=== PATIENT | female | born 1985 | race Caucasian/White ===

== ENCOUNTER → 2020-03-11 | Outpatient (CLI) | payer MEDICAID ==
[~2020-03-11] MED LIST: ACHD5005 PO; AMIT100T2 PO; AMOX-358 PO; CLIN300C11 PO; DULO30CA49 PO; GBPN600T PO; PREN1TAB73 PO; ROPI4TAB5 PO; TRZ50T PO
--- NOTE | 2020-03-11 14:17 | Diagnostic Imaging Report ---
INDICATION: Mastodynia. Patient had recent surgical procedure. Sonographic interrogation of the left breast was performed. A marked breast parenchymal heterogeneity is identified particularly in the 6:00 location. There is an area of heterogeneous hypoechogenicity at this location with some internal vascularity consistent with probable inflammatory tissue. A well-formed fluid collection or abscess is not seen at this time. There is some minimal edema in the subcutaneous tissues. IMPRESSION: Breast tissue heterogeneity with some increased vascularity. This is likely owing to an inflammatory process such as cellulitis and or soft tissue phlegmon. No discrete abscess is identified at this time. Follow-up after course of therapy could be performed to confirm improvement/clearing. Dictated by: Dictated on workstation # [id number]
== END ==
LOC: RAD 13:00
PROVIDERS: ATTEND Family Medicine
DX: N64.89 Other specified disorders of breast (principal); Z98.890 Other specified postprocedural states
CPT/HCPCS: 76642

== ENCOUNTER 2020-03-12 23:24 | Inpatient (IN) | payer MEDICAID ==
[~2020-03-12] VITALS: Ht 152.4 cm; Wt 63.0 kg
[2020-03-13] VITALS (7 sets, daily range): BP systolic 97–108; BP diastolic 61–69
[2020-03-13] MEDS ORDERED: fentaNYL INJECTION 100 MCG/2 ML AMP IVP ONE
[2020-03-13] MEDS ORDERED: VANCOMYCIN INJECTION 750 MG in NS (IVPB) 100 ML IV ONE ×2
[2020-03-13] MEDS ORDERED: PIPERACILLIN SODIUM/TAZOBACTAM 4.5 GM in NS (IVPB) 100 ML IV ONE ×2
--- NOTE | 2020-03-13 00:08 | ED General ---
General Chief Complaint: Post OP Complications/Pain Stated Complaint: POST OP PAIN & SWELLING,FEVER 101.8 Source of Information: Patient History of Present Illness Date Seen by Provider: Mar 13, 2020 Time Seen by Provider: 23:37 Initial Comments PT ARRIVES VIA POV FROM HOME WAS ADVISED TO COME HERE BY DR. PENA AND DR. ODOM, DR. 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 PENA ON 02/23/20--ABDOMINAL LIPOSUCTION WITH FAT TRANSFER TO BOTH BREASTS PT HAS HAD INCREASED PAIN, INCREASED REDNESS AND SIGNIFICANT SWELLING OF LEFT BREAST HAS HAD FEVER UP TO 103 THE LAST FEW DAYS HAS SEEN DR. PENA AND HAD BEEN PRESCRIBED KEFLEX. SAW HER AGAIN IN THE OFFICE 2 NIGHTS AGO, ALONG WITH DR. ODOM--WAS GIVEN A SHOT OF ROCEPHIN AND STARTED ON CLINDAMYCIN. PT ALSO STATES HER PAIN MEDICATION WAS SWITCHED. PT DOES NOT KNOW NAMES OF ANY OF HER MEDICATIONS OR DOSES--NOT EVEN HER REGULAR MEDICATIONS ( STATES SHE TAKES 12 OF THEM) , EXCEPT WHAT SHE HAS TAKEN A PHOTO OF ON HER PHONE. PER MED RECONCILIATION, PT WAS PRESCRIBED OXYCODONE ON 01/26/[address] AARON [facility] IN [place]; PRESCRIBED TRAMADOL, KEFLEX, XANAX AND PHENERGAN BY DR. PENA; PRESCRIBED KEFLEX 03/07/20 AND CLINDAMYCIN 03/[address] PENA; PRESCRIBED HYDROCODONE 03/11/[address] PENA ALSO PRESCRIBED PT STATES HER LAST DOSE OF PAIN MEDICATION WAS A FEW HOURS HAS NOT TAKEN ANYTHING ELSE FOR PAIN OR FEVER NO COUGH OR RESPIRATORY SYMPTOMS NO SHORTNESS OF BREATH NO SORE THROAT OR LOSS OF TASTE OR SMELL NO GI SYMPTOMS NO HEADACHE NO BODY ACHES NO KNOWN EXPOSURE TO COVID-19 PT STATES SHE HAS HAD THIS EXACT SAME PROCEDURE DONE, ALONG WITH A TUMMY TUCK, IN THE PAST BY DR. PENA AND DID NOT HAVE ANY PROBLEMS PT DOES STATE WITH HER LAST FOOT SURGERY SHE DID HAVE AN INFECTION POST OP, AND WAS HOSPITALIZED FOR IV ANTIBIOTICS ADDITIONALLY, PT STATES SHE IS SCHEDULED TO HAVE HER RIGHT OVARY REMOVED AT [facility] ON 03/19/20 FOR A GROWTH ON HER OVARY. PT IS NOT DIABETIC PCP: DR. KEE, [facility] IN [place] Allergies and Home Medications Allergies Coded Allergies: Sulfa (Sulfonamide Antibiotics) (Verified Allergy, Unknown, 03/12/20) Patient Home Medication List Home Medication List Reviewed: Yes Review of Systems Review of Systems Constitutional: see HPI, fever EENTM: no symptoms reported; No nose congestion, No throat pain Respiratory: no symptoms reported; No cough, No short of breath Cardiovascular: no symptoms reported Gastrointestinal: no symptoms reported; No abdominal pain, No loss of appetite, No nausea, No vomiting Genitourinary: no symptoms reported : No LMP: Feb 28, 2020 (NO CONTROLPERIODS ALWAYS IRREGULAR) Musculoskeletal: no symptoms reported Skin: see HPI Psychiatric/Neurological: No Symptoms Reported Hematologic/Lymphatic: No Symptoms Reported Immunological/Allergic: no symptoms reported Past Bhbhyff-Ieuhjz-Wkwlbw Hx Past Med/Social Hx: Reviewed and Corrections made Patient Social History Recent Foreign Travel: No Contact w/Someone Who Travel: No Past Medical History Surgeries: Yes Abdominal, Breast, Ear Surgery, Gallbladder, Orthopedic Respiratory: No Cardiac: Yes (TACHYCARDIA) Irregular Heartbeat, Palpitations Neurological: Yes Headaches /Migraines Reproductive Disorders: Yes (IRREGULAR PERIODS) Female Reproductive Disorders: Menstrual Problems Genitourinary: No Gastrointestinal: No Musculoskeletal: Yes (RESTLESS LEG SYNDROME; BILATERAL FOOT SURGERY/ARCH RECONSTRUCTION) Endocrine: No HEENT: Yes (BMT'S) Chronic Ear Infection Cancer: No Psychosocial: Yes Anxiety, Depression Family Medical History SOCIAL HISTORY: -ETOH--DENIES -DRUGS--DENIES -SMOKING--DENIES PAST SURGICAL HISTORY: -GASTRIC BYPASS -BILATERAL BREAST REDUCTION -ABDOMINAL LIPOSUCTION WITH FAT TRANSFER TO BILATERAL BREASTS --TWICE; POST OP WOUND INFECTION LEFT BREAST 02/2020 -TUMMY TUCK -CHOLECYSTECTOMY -BILATERAL FOOT SURGERY--ARCH RECONSTRUCTION FOR FLAT FEET--WITH POST OP WOUND INFECTION -BILATERAL MYRINGOTOMY TUBES Physical Exam Vital Signs Vital Signs - First Documented 03/12/20 23:34 Temp 36.7 Pulse 110 Resp 20 B/P (MAP) 105/83 (90) Pulse Ox 98 O2 Delivery Room Air Capillary Refill : Height, Weight, BMI Height: '" Weight: lbs. oz. 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 AREAS ARE VERY WARM TO TOUCH LEFT BREAST IS MARKEDLY TENDER, AND OVERLYING SKIN IS VERY TIGHT AND VERY SHINY NO DRAINAGE DORSAL ASPECT OF BOTH UPPER ARMS AND BOTH FOREARMS WITH ERYTHEMA AND WARMTH Focused Exam Lactate Level 03/12/20 23:35: Lactic Acid Level 1.10 Lactic Acid Level Laboratory Tests Test 03/12/20 23:35 Lactic Acid Level 1.10 MMOL/L (0.50-2.00) Progress/Results/Core Measures Suspected Sepsis SIRS Temperature: Pulse: Respiratory Rate: Laboratory Tests 03/12/20 23:35: White Blood Count 12.1H Blood Pressure / Mean: 03/12/20 23:35: Lactic Acid Level 1.10 Laboratory Tests 03/12/20 23:35: Creatinine 0.79, INR Comment 1.1, Platelet Count 363, Total Bilirubin 0.3 Results/Orders Lab Results Laboratory Tests Test 03/12/20 23:35 03/12/20 23:50 03/13/20 00:15 Range/Units White Blood Count 12.1 H 4.3-11.0 10^3/uL Red Blood Count 3.41 L 3.80-5.11 10^6/uL Hemoglobin 8.6 L 11.5-16.0 g/dL Hematocrit 28 L 35-52 % Mean Corpuscular Volume 81 80-99 fL Mean Corpuscular Hemoglobin 25 25-34 pg Mean Corpuscular Hemoglobin Concent 31 L 32-36 g/dL Red Cell Distribution Width 15.2 H 10.0-14.5 % Platelet Count 363 130-400 10^3/uL Mean Platelet Volume 12.7 H 9.0-12.2 fL Immature Granulocyte % (Auto) 0 % Neutrophils (%) (Auto) 82 H 42-75 % Lymphocytes (%) (Auto) 9 L 12-44 % Monocytes (%) (Auto) 8 0-12 % Eosinophils (%) (Auto) 0 0-10 % Basophils (%) (Auto) 0 0-10 % Neutrophils # (Auto) 9.9 H 1.8-7.8 10^3/uL Lymphocytes # (Auto) 1.1 1.0-4.0 10^3/uL Monocytes # (Auto) 1.0 0.0-1.0 10^3/uL Eosinophils # (Auto) 0.0 0.0-0.3 10^3/uL Basophils # (Auto) 0.0 0.0-0.1 10^3/uL Immature Granulocyte # (Auto) 0.1 0.0-0.1 10^3/uL Erythrocyte Sedimentation Rate 67 H 0-20 MM/HR Prothrombin Time 15.0 H 12.2-14.7 SEC INR Comment 1.1 0.8-1.4 Activated Partial Thromboplast Time 35 24-35 SEC Sodium Level 136 135-145 MMOL/L Potassium Level 3.4 L 3.6-5.0 MMOL/L Chloride Level 99 98-107 MMOL/L Carbon Dioxide Level 25 21-32 MMOL/L Anion Gap 12 5-14 MMOL/L Blood Urea Nitrogen 11 7-18 MG/DL Creatinine 0.79 0.60-1.30 MG/DL Estimat Glomerular Filtration Rate > 60 BUN/Creatinine Ratio 14 Glucose Level 120 H 70-105 MG/DL Lactic Acid Level 1.10 0.50-2.00 MMOL/L Calcium Level 8.5 8.5-10.1 MG/DL Corrected Calcium 8.8 8.5-10.1 MG/DL Magnesium Level 1.9 1.6-2.4 MG/DL Total Bilirubin 0.3 0.1-1.0 MG/DL Aspartate Amino Transf (AST/SGOT) 16 5-34 U/L Alanine Aminotransferase (ALT/SGPT) 16 0-55 U/L Alkaline Phosphatase 87 40-136 U/L C-Reactive Protein High Sensitivity 21.01 H 0.00-0.50 MG/DL Total Protein 7.0 6.4-8.2 GM/DL Albumin 3.6 3.2-4.5 GM/DL Procalcitonin 0.12 H <0.10 NG/ML Serum Test, Qualitative NEGATIVE NEGATIVE Coronavirus 2018 (ALEJANDRO) Negative Negative Urine Color DARK YELLOW Urine Clarity SL CLOUDY Urine pH 5.5 5-9 Urine Specific [place] 1.025 H 1.016-1.022 Urine Protein TRACE H NEGATIVE Urine Glucose (UA) NEGATIVE NEGATIVE Urine Ketones TRACE H NEGATIVE Urine Nitrite NEGATIVE NEGATIVE Urine Bilirubin NEGATIVE NEGATIVE Urine Urobilinogen 1.0 < = 1.0 MG/DL Urine Leukocyte Esterase NEGATIVE NEGATIVE Urine RBC (Auto) TRACE-I NEGATIVE Urine RBC RARE /HPF Urine WBC NONE /HPF Urine Squamous Epithelial Cells 10-25 H /HPF Urine Crystals NONE /LPF Urine Bacteria TRACE /HPF Urine Casts NONE /LPF Urine Mucus LARGE H /LPF Urine Culture Indicated NO Urine Opiates Screen POSITIVE H NEGATIVE Urine Oxycodone Screen NEGATIVE NEGATIVE Urine Methadone Screen NEGATIVE NEGATIVE Urine Propoxyphene Screen NEGATIVE NEGATIVE Urine Barbiturates Screen NEGATIVE NEGATIVE Ur Tricyclic Antidepressants Screen POSITIVE H NEGATIVE Urine Phencyclidine Screen NEGATIVE NEGATIVE Urine Amphetamines Screen NEGATIVE NEGATIVE Urine Methamphetamines Screen NEGATIVE NEGATIVE Urine Benzodiazepines Screen NEGATIVE NEGATIVE Urine Cocaine Screen NEGATIVE NEGATIVE Urine Cannabinoids Screen NEGATIVE NEGATIVE My Orders Orders - DOROTHY CRISTINA DO Ed Iv/Invasive Line Start (03/12/20 23:37) Urine Bedside (03/12/20 23:37) Monitor-Rhythm Ecg Trace Only (03/12/20 23:37) Cbc With Automated Diff (03/12/20 23:37) Comprehensive Metabolic Panel (03/12/20 23:37) Hs C Reactive Protein (03/12/20 23:37) Hcg,Qualitative Serum (03/12/20 23:37) Lactic Acid Analyzer (03/12/20 23:37) Magnesium (03/12/20 23:37) Procalcitonin (Pct) (03/12/20 23:37) Protime With Inr (03/12/20 23:37) Partial Thromboplastin Time (03/12/20 23:37) Ua Culture If Indicated (03/12/20 23:37) Blood Culture (03/12/20 23:37) Erythrocyte Sedimentation Rate (03/12/20 23:37) Ed Iv/Invasive Line Start (03/12/20 23:37) Coronavirus Sars-Cov-2 So 2018 (03/12/20 23:39) Covid 19 Inhouse Test (03/12/20 23:39) Chest Pa/Lat (2 View) (03/13/20 00:01) Fentanyl Injection (Sublimaze Injection (03/13/20 00:00) Piperacillin Sodium/Tazobactam (Zosyn Vi (03/13/20 00:00) Vancomycin Injection (Vancomycin Injecti (03/13/20 00:00) Vancomycin Injection (Vancomycin Injecti (03/13/20 01:00) Drug Screen Stat (Urine) (03/13/20 01:11) Ed Iv/Invasive Line Start (03/13/20 01:18) Lactated Ringers (Lr 1000 Ml Iv Solution (03/13/20 01:18) Ns Iv 1000 Ml (Sodium Chloride 0.9%) (03/13/20 01:18) Ed Iv/Invasive Line Start (03/13/20 02:27) Lactated Ringers (Lr 1000 Ml Iv Solution (03/13/20 02:27) Medications Given in ED Current Medications Medications Dose Ordered Sig/Hannah Route Start Time Stop Time Status Last Admin Dose Admin Fentanyl Citrate 50 mcg ONCE ONCE IVP 03/13/20 00:00 03/13/20 00:01 DC 03/13/20 00:34 50 MCG Piperacillin Sod/ Tazobactam Sod 4.5 gm/Sodium Chloride 100 ml @ 200 mls/hr ONCE ONCE IV 03/13/20 00:00 03/13/20 00:29 DC 03/13/20 00:34 200 MLS/HR Vancomycin HCl 500 mg/Sodium Chloride 100 ml @ 100 mls/hr ONCE ONCE IV 03/13/20 01:00 03/13/20 01:59 DC 03/13/20 02:16 100 MLS/HR Vancomycin HCl 750 mg/Sodium Chloride 100 ml @ 100 mls/hr ONCE ONCE IV 03/13/20 00:00 03/13/20 00:59 DC 03/13/20 01:10 100 MLS/HR Vital Signs/I&O 03/12/20 03/12/20 03/13/20 23:34 23:50 02:26 Temp 36.7 36.7 37.0 Pulse 110 110 101 Resp 20 20 13 B/P (MAP) 105/83 (90) 105/83 97/73 (90) Pulse Ox 98 98 100 O2 Delivery Room Air Capillary Refill : Progress Note : Progress Note GIVEN IV FLUIDS GIVEN FENTANYL FOR PAIN WITH MODERATE IMPROVEMENT GIVEN ZOSYN AND VANCOMYCIN ERYTHEMA TO ARMS IS GONE AT TIME OF ADMIT NO FEVER HEART RATE DOWN, BP UP WITH FLUIDS Diagnostic Imaging Comments CXR--ON ACUTE PROCESS, PENDING RADIOLOGIST REVIEW Reviewed: Reviewed by Me Departure Communication (Admissions) 0100--SPOKE WITH DR. ODOM, ACCEPTS PT FOR ADMIT. NO ADDITIONAL RECOMMENDATIONS AT THIS TIME Impression Primary Impression: Post op infection Additional Impressions: Cellulitis of left breast Sepsis Disposition: ADMITTED INPATIENT Condition: Stable Admissions Decision to Admit Reason: Admit from ER (General) Decision to Admit/Date: Mar 13, 2020 Time/Decision to Admit Time: 01:00 Departure-Patient Inst. Referrals: DIANA LY DO (PCP) Primary Care Physician DOROTHY CRISTINA DO Mar 13, 2020 00:08
[2020-03-13 00:33] LABS: BILIRUBIN,URINE NEGATIVE (NEGATIVE); CLARITY,URINE SL CLOUDY; COLOR,URINE DARK YELLOW; GLUCOSE, URINE (UA) NEGATIVE (NEGATIVE); KETONES,URINE TRACE (NEGATIVE); LEUKOCYTE ESTERASE ,URINE NEGATIVE (NEGATIVE); NITRITE,URINE NEGATIVE (NEGATIVE); PH,URINE 5.5 (5-9); PROTEIN,URINE TRACE (NEGATIVE)
[2020-03-13 00:33] LABS: BASOPHILS % (AUTO) 0 % (0-10); EOSINOPHILS % (AUTO) 0 % (0-10); HEMATOCRIT 28 % (35-52); HEMOGLOBIN 8.6 g/dL (11.5-16.0); LYMPHOCYTES # (AUTO) 1.1 10^3/uL (1.0-4.0); LYMPHOCYTES % (AUTO) 9 % (12-44); MEAN CORPUSCULAR HEMOGLOBIN 25 pg (25-34); MEAN CORPUSCULAR HGB CONC 31 g/dL (32-36); MEAN CORPUSCULAR VOLUME 81 fL (80-99); MEAN PLATELET VOLUME 12.7 fL (9.0-12.2); MONOCYTES % (AUTO) 8 % (0-12); NEUTROPHILS # (AUTO) 9.9 10^3/uL (1.8-7.8); NEUTROPHILS % (AUTO) 82 % (42-75); PLATELET COUNT 363 10^3/uL (130-400); WHITE BLOOD COUNT 12.1 10^3/uL (4.3-11.0)
[2020-03-13 00:42] LABS: BACTERIA,URINE TRACE /HPF; RBC,URINE RARE /HPF
[2020-03-13 00:43] LABS: ALBUMIN 3.6 GM/DL (3.2-4.5); CHLORIDE 99 MMOL/L (98-107); POTASSIUM 3.4 MMOL/L (3.6-5.0); SODIUM 136 MMOL/L (135-145)
[2020-03-13 00:44] LABS: CALCIUM 8.5 MG/DL (8.5-10.1); INR 1.1 (0.8-1.4)
[2020-03-13 00:46] LABS: GLUCOSE 120 MG/DL (70-105)
[2020-03-13 00:47] LABS: BILIRUBIN,TOTAL 0.3 MG/DL (0.1-1.0); CARBON DIOXIDE 25 MMOL/L (21-32)
[2020-03-13 00:49] LABS: ALKALINE PHOSPHATASE 87 U/L (40-136); CREATININE SERUM 0.79 MG/DL (0.60-1.30); GFR ESTIMATED > 60
[2020-03-13 00:50] LABS: BUN/CREATININE RATIO 14
[2020-03-13 00:52] LABS: ALANINE AMINOTRANSFERASE 16 U/L (0-55); MAGNESIUM 1.9 MG/DL (1.6-2.4)
[2020-03-13 00:55] LABS: ERYTHROCYTE SEDIMENTATION RATE 67 MM/HR (0-20)
[2020-03-13] MEDS ORDERED: VANCOMYCIN INJECTION 500 MG in NS (IVPB) 100 ML IV ONE (01:00)
[2020-03-13] MEDS ORDERED: LACTATED RINGERS 1,000 ML IV ONE ×3 (01:18→02:27)
[2020-03-13] MEDS ORDERED: NS IV 1000 ML 1,000 ML IV SCH (01:18)
[2020-03-13 01:33] LABS: AMPHETAMINE SCREEN, URINE NEGATIVE (NEGATIVE); BARBITURATE SCREEN URINE NEGATIVE (NEGATIVE); BENZODIAZEPINES SCREEN URINE NEGATIVE (NEGATIVE); CANNABINOID SCREEN, URINE NEGATIVE (NEGATIVE); COCAINE SCREEN URINE NEGATIVE (NEGATIVE); METHADONE STAT NEGATIVE (NEGATIVE); METHAMPHETAMINE SCREEN URINE S NEGATIVE (NEGATIVE); OPIATE SCREEN URINE POSITIVE (NEGATIVE); OXYCODONE STAT NEGATIVE (NEGATIVE); PROPOXYPHENE STAT NEGATIVE (NEGATIVE); TRICYCLIC ANTIDEPRESSANTS SCRE POSITIVE (NEGATIVE)
--- NOTE | 2020-03-13 01:50 | NUR ---
REPORT GIVEN TO CHRIS SANCHEZ. RELAYED MESSAGE FROM DR CRISTINA AND LEI PATIENT IS BEING TESTED FOR COVID 19 VIA SENDOUT SAMPLE. IN HOUSE SAMPLE WAS NEGITIVE. ADMINISTRATION DEAN YAA MARCOS.
--- NOTE | 2020-03-13 02:50 | NUR ---
MARIPOSA ELIZONDO admitted to room 423-1, with an admitting diagnosis of Cellulitis, on 03/13/20 from ED via cart, accompanied by staff.MARIPOSA ELIZONDO introduced to surroundings, call light, bed controls, phone, TV, temperature control, lights, meal times, smoking policy, visitor policy, side rail policy, bathrooms and showers. Patient Rights given to patient in the handbook. MARIPOSA ELIZONDO verbalizes understanding that [facility] is not responsible for the loss or damage to any personal effects or valuables that are kept in the patients posession during their hospitalization. MARIPOSA ELIZONDO verbalizes understanding of Interdisciplinary Patient Education. Patient and/or family were informed about the Rapid Response Team and its purpose.
--- NOTE | 2020-03-13 02:51 | NUR ---
Per Report from [facility] ED nurse, Pt was tested for Covid-[address] Gilbert order. However per Dr. Gilbert, Pt is not to be PUI. 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
[2020-03-13] MEDS ORDERED: ONDANSETRON 4 MG/2 ML (SDV) Z0FRAN IVP PRN (03:45)
[2020-03-13] MEDS: 1/2 NS IV SOLUTION 1,000 ML IV SCH ×3 (04:15→15:23)
[2020-03-13] MEDS ORDERED: PIPERACILLIN/TAZO 4.5 GM VIAL (ZOSYN) IV ONE (05:56)
[2020-03-13] MEDS ORDERED: NS (IVPB) 100 ML ONE (05:57)
[2020-03-13] MEDS ORDERED: PIPERACILLIN/TAZO 4.5 GM/NS 100 ML IV SCH ×2 (06:00)
[2020-03-13 06:10] LABS: BASOPHILS % (AUTO) 0 % (0-10); EOSINOPHILS # (AUTO) 0.1 10^3/uL (0.0-0.3); EOSINOPHILS % (AUTO) 1 % (0-10); HEMATOCRIT 25 % (35-52); HEMOGLOBIN 7.5 g/dL (11.5-16.0); LYMPHOCYTES # (AUTO) 1.1 10^3/uL (1.0-4.0); LYMPHOCYTES % (AUTO) 11 % (12-44); MEAN CORPUSCULAR HEMOGLOBIN 25 pg (25-34); MEAN CORPUSCULAR HGB CONC 31 g/dL (32-36); MEAN CORPUSCULAR VOLUME 82 fL (80-99); MEAN PLATELET VOLUME 12.6 fL (9.0-12.2); MONOCYTES # (AUTO) 1.2 10^3/uL (0.0-1.0); MONOCYTES % (AUTO) 11 % (0-12); NEUTROPHILS # (AUTO) 8.1 10^3/uL (1.8-7.8); NEUTROPHILS % (AUTO) 77 % (42-75); PLATELET COUNT 270 10^3/uL (130-400); WHITE BLOOD COUNT 10.5 10^3/uL (4.3-11.0)
[2020-03-13] MEDS: PIPERACILLIN/TAZOBACTAM (BULK) 4.5 GM in NS (IVPB) 100 ML IV SCH ×3 (06:13→21:45)
[2020-03-13 06:37] LABS: ALANINE AMINOTRANSFERASE 14 U/L (0-55); ALBUMIN 2.9 GM/DL (3.2-4.5); ALKALINE PHOSPHATASE 67 U/L (40-136); BILIRUBIN,TOTAL 0.3 MG/DL (0.1-1.0); BUN/CREATININE RATIO 12; CALCIUM 7.9 MG/DL (8.5-10.1); CARBON DIOXIDE 26 MMOL/L (21-32); CHLORIDE 103 MMOL/L (98-107); CREATININE SERUM 0.65 MG/DL (0.60-1.30); GFR ESTIMATED > 60; GLUCOSE 86 MG/DL (70-105); POTASSIUM 3.3 MMOL/L (3.6-5.0); SODIUM 136 MMOL/L (135-145); TOTAL PROTEIN 5.4 GM/DL (6.4-8.2)
[2020-03-13] MEDS: fentaNYL INJECTION 100 MCG/2 ML AMP IVP PRN ×3 (06:37→20:48)
--- NOTE | 2020-03-13 07:58 | Diagnostic Imaging Report ---
INDICATION: Fever. Pain and redness in the left breast. EXAMINATION: PA and lateral views of the chest. FINDINGS: The heart size and vascularity are normal. Lungs are clear. There is no effusion. There is no acute bony abnormality. IMPRESSION: No acute abnormality is seen. Dictated by: Dictated on workstation # [id number]
[2020-03-13] MEDS ORDERED: TRZ50T PO (10:03)
[2020-03-13] MEDS ORDERED: ROPI4TAB5 PO (10:03)
[2020-03-13] MEDS ORDERED: DULO30CA49 PO (10:03)
[2020-03-13] MEDS ORDERED: AMIT100T2 PO (10:03)
[2020-03-13] MEDS ORDERED: PREN1TAB73 PO (10:03)
[2020-03-13] MEDS ORDERED: CLIN300C11 PO (10:03)
[2020-03-13] MEDS ORDERED: GBPN600T PO (10:03)
[2020-03-13] MEDS ORDERED: ACHD5005 PO (10:03)
--- NOTE | 2020-03-13 10:06 | NUR ---
SPOKE WITH THE PT, WENT THRU THE EXT MED HISTORY AND CALLED [facility] TO COMPLETE THE MED REC EMGALITY 120MG/ML MONTHLY INJECTIONS ARE ON THE EXT MED HISTORY WITH FILL DATES OF 03-11-2020, 02-12-2020, 01-03-2020 HOWEVER PT SHOOK HER HEAD WHEN I ASKED ABOUT THESE- WHEN I INQUIRED IF SHE HAD EVER USED THE PT SAID NO. KEFLEX 500MG WAS PRESCRIBED AND FILLED ON 01-05-2020 #20 HOWEVER THAT THERAPY WAS DISCONTINUED AND SHE WAS TAKING CLINDAMYCIN PRIOR TO BEING ADMITTED THE FOLLOWING MEDICATIONS THE PT SAYS SHE TAKES HOWEVER THEY ARE ALL PAST DUE FOR REFILLS AND WHEN I INQUIRED ABOUT THIS THE PT SAYS SHE HAS A "STOCK" BUILT UP: AMITRIPTYLINE 100MG LAST FILLED 01-15-2020 #30/30DS TRAZODONE 50MG LAST FILLED 01-16-2020 #30/30DS GABAPENTIN 600MG LAST FILLED 11-14-2019 #90/30DS- PT DID SAY THERE ARE SOME DAYS SHE JUST TAKES THIS AT HS OTC MEDS: VITAMIN
--- NOTE | 2020-03-13 13:21 | History & Physical-Surgical ---
JOLYNN HARGROVE MED STUDENT 03/13/20 1321: History of Present Illness History of Present Illness Reason for visit/HPI left breast swelling, redness s/p abdominal liposuction with adipose tissue placed in both breasts 02/22 hx gastric bypass Date of Admission Mar 13, 2020 at 01:00 Date Seen by a Provider: Mar 13, 2020 Time Seen by a Provider: 07:10 I consulted on this patient on 03/12/20 approximately 2200 Attending Physician Valentino Odom DO Admitting Physician Katya Magallanes DO Consult Consult requested by Dr. Zavala Dayan is a 34 yo F who underwent abdominal liposuction with transfer of adipose tissue to her breasts on 02/22. She states she had done this procedure once prior. The patient reports she felt sore following the surgery but went several weeks without problems, until she began having intermittent fever and chills over the past 5 days with increasing left chest pain and left breast swelling. Per the patient and ER note the patient tried Keflex without improvement, was given IM rocephin and switched to clindamycin 3 nights ago. The patient states her pain is 4/10 this morning and does not radiate. She denies abdominal pain, nausea, vomiting, current fever, and SOB. Denies pain elsewhere on the body. Allergies and Home Medications Allergies Coded Allergies: Sulfa (Sulfonamide Antibiotics) (Verified Allergy, Unknown, 03/12/20) codeine (Verified Allergy, Unknown, 03/13/20) latex (Verified Allergy, Unknown, 03/13/20) Uncoded Allergies: tape (Allergy, Unknown, 03/13/20) Home Medications Amitriptyline HCl 100 Mg Tablet, 100 MG PO HS, (Reported) FILLED 01-15-2020 #30 Clindamycin HCl 300 Mg Capsule, 300 MG PO QID, (Reported) FILLED 03-10-2020 #40/10 DAY SUPPLY Duloxetine HCl 30 Mg Capsule.dr, 30 MG PO DAILY, (Reported) Gabapentin 600 Mg Tablet, 600 MG PO TID PRN for PAIN-BREAKTHROUGH, (Reported) LAST FILLED 11-14-2019 #90/30 DAY SUPPLY Hydrocodone/Acetaminophen 1 Each Tablet, 1-2 EA PO Q6H PRN for PAIN-MODERATE (5- 7), (Reported) Pnv95/Ferrous Fumarate/FA 1 Each Tablet, 1 EACH PO DAILY, (Reported) Ropinirole HCl 4 Mg Tablet, 4 MG PO HS, (Reported) FILLED 01-26-2020 #30 Trazodone HCl 50 Mg Tablet, 50 MG PO HS, (Reported) LAST FILLED 01-16-2020 #30 Past Zgvzfce-Etqlpw-Aaaogu Hx Patient Social History Alcohol Use: Denies Use Recreational Drug Use: No Smoking Status: Unknown if Ever Smoked Recent Foreign Travel: No Contact w/Someone Who Travel: No Recent Infectious Disease Expo: No Immunizations Up To Date Date of Influenza Vaccine: Feb 21, 2020 Surgeries History of Surgeries: Yes Surgeries: Abdominal, Breast, Ear Surgery, Gallbladder, Orthopedic Respiratory History of Respiratory Disorde: No Cardiovascular History of Cardiac Disorders: Yes (TACHYCARDIA) Cardiac Disorders: Irregular Heartbeat, Palpitations Neurological History of Neurological Disord: Yes Neurological Disorders: Headaches /Migraines Reproductive System : No Hx Reproductive Disorders: Yes (IRREGULAR PERIODS) Female Reproductive Disorders: Menstrual Problems Genitourinary History of Genitourinary Disor: No Gastrointestinal History of Gastrointestinal Di: No Musculoskeletal History of Musculoskeletal Dis: Yes (RESTLESS LEG SYNDROME; BILATERAL FOOT SURGERY/ARCH RECONSTRUCTION) Endocrine History of Endocrine Disorders: No 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 Cancer History of Cancer: No Psychosocial History of Psychiatric Problem: Yes Behavioral Health Disorders: Anxiety, Depression Review of Systems Constitutional: No chills, No diaphoresis, No fever EENTM: No ear pain, No double vision Respiratory: No cough, No dyspnea on exertion, No short of breath Cardiovascular: No edema, No palpitations Gastrointestinal: No abdominal pain, No constipation Genitourinary: No dysuria, No hematuria Musculoskeletal: No back pain, No joint pain Skin: No change in color, No change in hair/nails Psychiatric/Neurological: Denies Anxiety, Denies Depressed All Other Systems Reviewed Negative Unless Noted: Yes Physical Exam Vital Signs Vital Signs - First Documented 03/12/20 23:34 Temp 36.7 Pulse 110 Resp 20 B/P (MAP) 105/83 (90) Pulse Ox 98 O2 Delivery Room Air Capillary Refill : Less Than 3 Seconds Height, Weight, BMI Height: '" Weight: lbs. oz. kg; 27.12 BMI Method: General Appearance: No Apparent Distress, WD/WN HEENT: PERRL/EOMI, Normal ENT Inspection Neck: Non Tender, Supple Respiratory: Lungs Clear, Normal Breath Sounds, No Accessory Muscle Use, No Respiratory Distress Cardiovascular: Regular Rate, Rhythm, No Edema Gastrointestinal: Non Tender, Soft Extremity: Normal Capillary Refill, Non Tender Neurologic/Psychiatric: Alert, Oriented x3 Skin: Warm/Dry, Other (left breast swelling with erythema to the lower half of the breast. Erythema well within the margins drawn in the ER last night. ) Data Review Labs Laboratory Tests 03/12/20 23:35: White Blood Count 12.1H, Red Blood Count 3.41L, Hemoglobin 8.6L, Hematocrit 28L, Mean Corpuscular Volume 81, Mean Corpuscular Hemoglobin 25, Mean Corpuscular Hemoglobin Concent 31L, Red Cell Distribution Width 15.2H, Platelet Count 363, Mean Platelet Volume 12.7H, Immature Granulocyte % (Auto) 0, Neutrophils (%) (Auto) 82H, Lymphocytes (%) (Auto) 9L, Monocytes (%) (Auto) 8, Eosinophils (%) (Auto) 0, Basophils (%) (Auto) 0, Neutrophils # (Auto) 9.9H, Lymphocytes # (Auto) 1.1, Monocytes # (Auto) 1.0, Eosinophils # (Auto) 0.0, Basophils # (Auto) 0.0, Immature Granulocyte # (Auto) 0.1, Erythrocyte Sedimentation Rate 67H, Prothrombin Time 15.0H, INR Comment 1.1, Activated Partial Thromboplast Time 35, Sodium Level 136, Potassium Level 3.4L, Chloride Level 99, Carbon Dioxide Level 25, Anion Gap 12, Blood Urea Nitrogen 11, Creatinine 0.79, Estimat Glomerular Filtration Rate > 60, BUN/Creatinine Ratio 14, Glucose Level 120H, Lactic Acid Level 1.10, Calcium Level 8.5, Corrected Calcium 8.8, Magnesium Level 1.9, Total Bilirubin 0.3, Aspartate Amino Transf (AST/SGOT) 16, Alanine Aminotransferase (ALT/SGPT) 16, Alkaline Phosphatase 87, C-Reactive Protein High Sensitivity 21.01H, Total Protein 7.0, Albumin 3.6, Procalcitonin 0.12H, Serum Didi t, Qualitative NEGATIVE 03/12/20 23:50: Coronavirus 2019 (ALEJANDRO) Negative 03/13/20 00:15: Urine Color DARK YELLOW, Urine Clarity SL CLOUDY, Urine pH 5.5, Urine Specific [place] 1.025H, Urine Protein TRACEH, Urine Glucose (UA) NEGATIVE, Urine Ketones TRACEH, Urine Nitrite NEGATIVE, Urine Bilirubin NEGATIVE, Urine Urobilinogen 1.0, Urine Leukocyte Esterase NEGATIVE, Urine RBC (Auto) TRACE-I, Urine RBC RARE, Urine WBC NONE, Urine Squamous Epithelial Cells 10-25H, Urine Crystals NONE, Urine Bacteria TRACE, Urine Casts NONE, Urine Mucus LARGEH, Urine Culture Indicated NO, Urine Opiates Screen POSITIVEH, Urine Oxycodone Screen NEGATIVE, Urine Methadone Screen NEGATIVE, Urine Propoxyphene Screen NEGATIVE, Urine Barbiturates Screen NEGATIVE, Ur Tricyclic Antidepressants Screen POSITIVEH, Urine Phencyclidine Screen NEGATIVE, Urine Amphetamines Screen NEGATIVE, Urine Methamphetamines Screen NEGATIVE, Urine Benzodiazepines Screen NEGATIVE, Urine Cocaine Screen NEGATIVE, Urine Cannabinoids Screen NEGATIVE 03/13/20 05:47: White Blood Count 10.5, Red Blood Count 3.01L, Hemoglobin 7.5L, Hematocrit 25L, Mean Corpuscular Volume 82, Mean Corpuscular Hemoglobin 25, Mean Corpuscular Hemoglobin Concent 31L, Red Cell Distribution Width 15.3H, Platelet Count 270, Mean Platelet Volume 12.6H, Immature Granulocyte % (Auto) 0, Neutrophils (%) (Auto) 77H, Lymphocytes (%) (Auto) 11L, Monocytes (%) (Auto) 11, Eosinophils (%) (Auto) 1, Basophils (%) (Auto) 0, Neutrophils # (Auto) 8.1H, Lymphocytes # (Auto) 1.1, Monocytes # (Auto) 1.2H, Eosinophils # (Auto) 0.1, Basophils # (Auto) 0.0, Immature Granulocyte # (Auto) 0.0, Sodium Level 136, Potassium Level 3.3L, Chloride Level 103, Carbon Dioxide Level 26, Anion Gap 7, Blood Urea Nitrogen 8, Creatinine 0.65, Estimat Glomerular Filtration Rate > 60, BUN/Creatinine Ratio 12, Glucose Level 86, Calcium Level 7.9L, Corrected Calcium 8.8, Total Bilirubin 0.3, Aspartate Amino Transf (AST/SGOT) 14, Alanine Aminotransferase (ALT/SGPT) 14, Alkaline Phosphatase 67, Total Protein 5.4L, Albumin 2.9L Assessment/Plan Assessment/Plan Admission Diagonsis left breast swelling, redness s/p abdominal liposuction with adipose tissue placed in both breasts 02/22 Assessment/Plan left breast swelling, redness s/p abdominal liposuction with adipose tissue placed in both breasts 02/22 hx gastric bypass continue vancomycin and Zosyn breast and skin appear substantially improved on IV antibiotics Continue IV antibiotics 1 more day, discharge home tomorrow if things continue to improve Clinical Quality Measures DVT/VTE Risk/Contraindication: Risk Factor Score Per Nursin RFS Level Per Nursing on Admit: 3=High VALENTINO ODOM DO 03/13/202004: History of Present Illness History of Present Illness Reason for visit/HPI CC left breast pain erythema 34-year-old female who on 02 22 underwent panniculectomy and liposuction with fat grafting to bilateral breasts. Patient was started on Keflex. Patient started having some slight swelling erythema and pain to the left breast and last she was given a shot of Rocephin and started on clindamycin. Since then patient has been running a fever with a T-max of 102.6. She states that the breasts on the left side is swollen and very tight and uncomfortable. Nothing was really helping with the pain. After being admitted and started getting antibiotics IV patient states that she is starting to feel better. The erythema has gone down some. Her pain which she states was moderate to severe is much better controlled. I consulted on this patient on 03.13.2020 [id number] Allergies and Home Medications Allergies Coded Allergies: Sulfa (Sulfonamide Antibiotics) (Verified Allergy, Unknown, 03/12/20) codeine (Verified Allergy, Unknown, 03/13/20) latex (Verified Allergy, Unknown, 03/13/20) Uncoded Allergies: tape (Allergy, Unknown, 03/13/20) Home Medications Amitriptyline HCl 100 Mg Tablet, 100 MG PO HS, (Reported) FILLED 01-15-2020 #30 Clindamycin HCl 300 Mg Capsule, 300 MG PO QID, (Reported) FILLED 03-10-2020 #40/10 DAY SUPPLY Duloxetine HCl 30 Mg Capsule.dr, 30 MG PO DAILY, (Reported) Gabapentin 600 Mg Tablet, 600 MG PO TID PRN for PAIN-BREAKTHROUGH, (Reported) LAST FILLED 11-14-2019 #90/30 DAY SUPPLY Hydrocodone/Acetaminophen 1 Each Tablet, 1-2 EA PO Q6H PRN for PAIN-MODERATE (5- 7), (Reported) Pnv95/Ferrous Fumarate/FA 1 Each Tablet, 1 EACH PO DAILY, (Reported) Ropinirole HCl 4 Mg Tablet, 4 MG PO HS, (Reported) FILLED 01-26-2020 #30 Trazodone HCl 50 Mg Tablet, 50 MG PO HS, (Reported) LAST FILLED 01-16-2020 #30 Patient Home Medication List Home Medication List Reviewed: Yes Past Bbmpshu-Xicfng-Szzslm Hx Patient Social History Alcohol Use: Denies Use Recreational Drug Use: No Smoking Status: Unknown if Ever Smoked Surgeries History of Surgeries: Yes (Abdominal, Breast, Ear Surgery, Gallbladder, Orthopedic, gastric bypass) Reviewed Nursing Assessment Reviewed/Agree w Nursing PMH: Yes Family Medical History Significant Family History: No Pertinent Family Hx Review of Systems Constitutional: No chills, No diaphoresis; fever EENTM: No ear pain, No double vision Respiratory: No cough, No dyspnea on exertion, No short of breath Cardiovascular: No edema, No palpitations Gastrointestinal: No abdominal pain, No constipation Genitourinary: No dysuria, No hematuria Musculoskeletal: No back pain, No joint pain Skin: No change in color, No change in hair/nails Psychiatric/Neurological: Denies Anxiety, Denies Depressed All Other Systems Reviewed Negative Unless Noted: Yes (Negative excepted noted.) Physical Exam General Appearance: No Apparent Distress, WD/WN HEENT: PERRL/EOMI, Normal ENT Inspection Respiratory: Chest Non Tender, No Accessory Muscle Use, No Respiratory Distress Cardiovascular: Regular Rate, Rhythm, No Edema (a) Gastrointestinal: Non Tender, Soft Rectal: Deferred Back: Normal Inspection, No CVA Tenderness Extremity: Normal Capillary Refill, Non Tender Neurologic/Psychiatric: Alert, Oriented x3, No Motor/Sensory Deficits, Normal 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 Erythema well within the margins drawn in the ER last night which extende into upper chest, right breast and upper abodmen) Comments breasts examined with female nurse. left breast swollen and glistening appearance of skin, no fluctuance, tender to palpation, paniculectomy incision is clean dry and intact no surrounding erythema Assessment/Plan Assessment/Plan Admission Diagonsis left breast pain left breast cellulitis fever s/p paniculectomy, liposuction with fat tranfer to breasts Patient feeling better today and wanting to go home. She has had some improvement of cellulitis from markings made in the emergency dept. I advised the patient I do not recommend that she go home yet, I would rather her get further IV antibioitic (Zosyn/Vanc) She agrees to stay at this point. Pain control Repeat labs in am. Admission Status: Observation Assessment/Plan left breast pain left breast cellulitis fever s/p paniculectomy, liposuction with fat tranfer to breasts Patient feeling better today and wanting to go home. She has had some improvement of cellulitis from markings made in the emergency dept. I advised the patient I do not recommend that she go home yet, I would rather her get further IV antibioitic (Zosyn/Vanc) She agrees to stay at this point. Pain control Repeat labs in am. Supervisory-Addendum Brief Verification & Attestation Participated in pt care: history, MDM, physical Personally performed: exam, history, MDM, supervision of care Care discussed with: Medical Student Procedures: n/a Results interpretation: Verified all documentation Verification and Attestation of Medical Student E/M Service A medical student performed and documented this service in my presence. I reviewed and verified all information documented by the medical student and made modifications to such information, when appropriate. I personally performed the physical exam and medical decision making. Valentino Odom, Mar 13, 2020,20:14 JOLYNN HARGROVE MED STUDENT Mar 13, 2020 13:21 VALENTINO ODOM DO Mar 13, 2020 20:05
--- NOTE | 2020-03-13 13:55 | NUR ---
RD ASSESSMENT PMHx: no significant PMH PT INTERACTION: Pt was awake and pleasant during nutrition assessment. Pt states current appetite is okay. Note PO intake 25% x1meal, per chart review. Pt states following a regular diet at home, and has difficulty with swallowing "every once in a while." Pt states no recent issues with nausea, vomiting, constipation, or diarrhea, and that her last BM was 1week ago. Note pt not currently on bowel regimen per chart review. Pt states no recent wt changes. Note unable to determine recent wt hx, per chart review. Note presence of wound (L breast), per chart review. ABNORMAL NUTRITION-RELATED LAB VALUES LOW: K 3.3; Ca 7.9; Pro 5.4; alb 2.9 HIGH: Est. kcal needs: 1250 kcal | 20 kcal/kg Est. Pro needs: 76 g Pro | 1.2 g Pro/kg PES STATEMENT: Inadequate oral intake (NI-2.1) related to loss of appetite as evidenced by pt interview | PO intake 15% x1meal Inadequate protein intake (NI-5.6.1) related to increased protein needs as evidenced by presence of wound (L breast) INTERVENTION: Continue with current diet order of Regular diet. Add Ensure HP (vary) to meals TID. Provides 160 kcal and 16 g Pro per serving, for perceived benefit to wound healing. Will continue to follow and reassess as pt needs, intake, and status change. Judah Bazan, MS, RD, LD
[2020-03-13] MEDS: VANCOMYCIN 1 GM/NS 250 ML IVPB IV SCH ×2 (14:00)
--- NOTE | 2020-03-13 14:09 | NUR ---
Dr Gilbert notified for discontinuing or slowing of fluids
--- NOTE | 2020-03-13 21:45 | NUR ---
PATIENT INFORMED OF VISITOR POLICY AT THIS TIME. SHE BECAME VERY AGITATED WHEN SHE FOUND OUT THAT HER COULD NOT STAY THE NIGHT. TRAVEL REGISTERED NURSE ICU NOTIFIED TO VERIFY VISITOR POLICY WHILE IN ROOM. PATIENT STATES SHE "WILL BE LEAVING AFTER ANTIBIOTIC IS COMPLETE."
--- NOTE | 2020-03-13 22:03 | NUR ---
Dr. Gilbert notified of pt's anger over the visitor policy. Dr. Gilbert states if patient does choose to leave AMA to please instruct her to follow up with her surgical Dr. tomorrow (Dr. Teixeira) and to continue taking the clindamycin that she had been taking prior to hospital admission.
--- NOTE | 2020-03-13 22:15 | NUR ---
Pt informed of Dr. Gilbert being notified of pt statements that she is "going to leave after this antibiotic" and "that we can't make her stay." She was told that she is correct and it is her right to leave against medical advice if she so chooses, but we cannot bend our hospital rules concerning visitor policy during this pandemic. Pt states she will be leaving in AM, but will be filing a complaint about our visitor policy.
[2020-03-14] MEDS: VANCOMYCIN 1 GM/NS 250 ML IVPB IV SCH ×2 (01:20)
[2020-03-14 04:05] VITALS: BP 100/62
[2020-03-14 05:54] LABS: HEMOGLOBIN 7.3 g/dL (11.5-16.0); MEAN PLATELET VOLUME 12.6 fL (9.0-12.2); WHITE BLOOD COUNT 9.8 10^3/uL (4.3-11.0)
[2020-03-14] MEDS: PIPERACILLIN/TAZOBACTAM (BULK) 4.5 GM in NS (IVPB) 100 ML IV SCH (06:11)
[2020-03-14] MEDS: 1/2 NS IV SOLUTION 1,000 ML IV SCH (07:21)
[2020-03-14 08:00] VITALS: BP 87/56
[2020-03-14 12:00] VITALS: BP 99/56
[2020-03-14] MEDS ORDERED: TROUGH ORDER-PHARMACY XX NR (13:00)
[2020-03-14] MEDS ORDERED: AMOX-358 PO (13:29)
--- NOTE | 2020-03-14 13:31 | Discharge Inst-Simple/Standard ---
Discharge Inst-Standard Discharge Medications New, Converted or Re-Newed RX: Transmitted to Pharmacy Patient Instructions/Follow Up Plan of Care/Instructions/FU: Follow up with Dr. Teixeira within the next week. If any change in condition be seen at that time. Activity as Tolerated: No (Same restrictions Dr. Teixeira gave you.) Discharge Diet: Regular Diet Other Inst to Patient Follow up Appt: Make appointment for Dr. Teixeira within the next week. Instructions: Keep same post procedure instructions Dr. Teixeira gave you. Symptoms to Report: Appetite Changes, Extremity Discoloration, Numbness/Tingling, Swelling Increased, Bleeding Excessive, Eyesight Changes, Pain Increased, Urine Color Change, Constipation(Persistent), Fever over 101 degree F, Pain/Pressure in chest, Urinating Difficulty, Cough Up/Vomit Blood, Heart Beat Irreg/Pounding, Pain/Pressure in jaw, Vaginal Bleeding Increase, Cramps in feet or legs, Lightheadedness, Pain/Pressure in shoulder, Diarrhea(Persistent), Memory Changes Suddenly, Questions/Concerns, Weight gain consecutive days, Dizziness/Fainting, Nausea/Vomiting, Shortness of Breath, Weight gain over 2 pounds If questions or concerns contact your physician Or seek help at emergency department. VALENTINO ODOM DO Mar 14, 2020 13:31
--- NOTE | 2020-03-14 13:37 | Progress Note - Surgery ---
Subjective Date Seen by a Provider: Mar 14, 2020 Time Seen by a Provider: 13:32 Subjective/Events-last exam Patient feeling much better today. Her pain is minimal and what she would expect. Erythema has almost completely resolved. Wanting to go home. Denies n/v fever sweats chills shortness of breath or chest pain. Focused Exam Lactate Level 03/12/20 23:35: Lactic Acid Level 1.10 Objective Exam Vital Signs Date Time Temp Pulse Resp B/P (MAP) Pulse Ox O2 Delivery O2 Flow Rate FiO2 03/14/20 12:00 36.3 86 16 99/56 (70) 100 Room Air 03/14/20 08:02 Room Air 03/14/20 08:00 36.4 100 16 87/56 (66) 96 Room Air 03/14/20 04:05 36.7 92 18 100/62 (75) 98 03/13/20 23:42 37.3 95 18 97/61 (73) 100 Room Air 03/13/20 19:50 100 Room Air 03/13/20 19:50 37.4 120 16 105/62 (76) 100 Room Air 03/13/20 19:00 104 03/13/20 16:00 36.4 103 14 98/68 (78) 96 Room Air I & O 03/14/20 07:00 Intake Total 2600 ml Balance 2600 ml Capillary Refill : Less Than 3 Seconds General Appearance: No Apparent Distress, WD/WN HEENT: PERRL/EOMI, Normal ENT Inspection Neck: Non Tender, Supple Respiratory: Chest Non Tender, No Accessory Muscle Use, No Respiratory Distress Cardiovascular: Regular Rate, Rhythm, No Edema Extremity: Normal Capillary Refill, Non Tender Neurologic/Psychiatric: Alert, Oriented x3, No Motor/Sensory Deficits, Normal 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 ) Lymphatic: No Adenopathy Results Lab Laboratory Tests 03/14/20 05:22: White Blood Count 9.8, Red Blood Count 2.85L, Hemoglobin 7.3L, Hematocrit 23L, Mean Corpuscular Volume 81, Mean Corpuscular Hemoglobin 26, Mean Corpuscular Hemoglobin Concent 32, Red Cell Distribution Width 15.5H, Platelet Count 290, Mean Platelet Volume 12.6H 03/14/20 13:00: Vancomycin Level Trough 10.0 Microbiology 03/13/20 Blood Culture - Preliminary, Resulted No growth Assessment/Plan Assessment/Plan Assessment/Plan left breast pain left breast cellulitis fever s/p paniculectomy, liposuction with fat tranfer to breasts Patient feeling better today and wanting to go home. She has had improvement of cellulitis, now just slight swelling Patient wanting to go home which I agree with today. Will change to Augmentin Follow up with Dr. Teixeira. Final Diagnosis left breast pain left breast cellulitis fever s/p paniculectomy, liposuction with fat tranfer to breasts Clinical Quality Measures DVT/VTE Risk/Contraindication: Risk Factor Score Per Nursin RFS Level Per Nursing on Admit: 3=High VALENTINO ODOM DO Mar 14, 2020 13:37
--- NOTE | 2020-03-19 04:48 | Physician Query Clarification ---
PQ-Uncertain Diagnosis Admission/Discharge Admission Date: Mar 13, 2020 at 01:00 Discharge Date: Mar 14, 2020 at 14:00 VALENTINO So DO The medical record reflects the following clinical scenario: History/Risk Factors: 34-year-old female who on 02/22 underwent panniculectomy and liposuction with fat grafting to bilateral breasts.She states she had done this procedure once prior. The patient reports she felt sore following the surgery but went several weeks without problems, until she began having intermittent fever and chills over the past 5 days with increasing left chest pain and left breast swelling. ER physician report, 03/13: Post OP infection, cellulitis of the breast, sepsis. Hand P, 03/13: Left breast cellulitis, fever, s/p paniculectomy, liposuction with fat tranfer to breasts, Patient feeling better today and wanting to go home. General surgery Progress notes, 03/14: Patient feeling much better today. Her pain is minimal and what she would expect. Erythema has almost completely resolved. Clinical Findings: WBC 12.1 H, Fever, Pulse-110 H Treatment: Vancomycin IV Question: Is Sepsis a clinically valid diagnosis? Sepsis was documented in the ER physician note, 03/13 with no further docume ntation in the medical record. Please document a response in Progress Note or Discharge Summary. 1. Yes, clinically valid, Sepsis resolved. 2. No, Sepsis ruled out. 3. Other, with explanation of clinical findings. 4. Undetermined, no explanation for clinical findings. PHYSICIAN RESPONSE Diagnosis clinically valid: Yes, Conditon resolved Please remember a lack of response to the above will prompt a phone page by [facility] staff. In responding to this query, please exercise your independent professional judgment. The purpose of this communication is to more accurately reflect the complexity of your patients condition. The fact that a question is asked does not imply that any particular answer is desired or expected. Thank you for your timely response to this clarification. Requestors name: [ Braulio Charles] Phone # [ ] THIS PHYSICIAN QUERY FORM IS A PERMANENT PART OF THE MEDICAL RECORD BRAULIOTUYET Mar 19, 2020 04:48 VALENTINO ODOM DO Mar 26, 2020 08:20
== END 2020-03-14 14:00 | disposition home or self-care (01) | DRG 862 ==
LOC: EDUNIT# 23:24 → ER 23:28 → 4TH 03-13 01:00
PROVIDERS: ADMIT Surgery; ATTEND Surgery
DX: T81.44XA Sepsis following a procedure, initial encounter (principal); A41.9 Sepsis, unspecified organism; N61.0 Mastitis without abscess; G43.909 Migraine, unspecified, not intractable, without status migrainosus; N92.6 Irregular menstruation, unspecified; F41.9 Anxiety disorder, unspecified; F32.9 Major depressive disorder, single episode, unspecified; Z98.84 Bariatric surgery status
CPT/HCPCS: 36415; 71046; 80053; 80202; 80306; 81000; 83605; 83735; 84145; 84703; 85025; 85027; 85610; 85652; 85730; 86141; 87040; 87635; 93041; 96361; 96365; 96367; 96375

== ENCOUNTER → 2020-03-18 | Outpatient (CLI) | payer MEDICAID ==
--- NOTE | 2020-03-18 15:18 | Diagnostic Imaging Report ---
EXAM: Ultrasound of the left breast, limited. INDICATION: Breast pain The prior left breast ultrasound exam of 03/11/2020 noted breast tissue heterogeneity with increased vascularity. This appearance was felt to relate to an inflammatory/infectious process. There is no discrete abscess visualized. On this exam, there does seem to be less heterogeneity of the breast tissue in the vascularity of the breast tissue is not as striking as on the prior exam.. There is a 3-4 cm fairly well-circumscribed avascular hypoechoic area in the 6 o'clock position. This has the appearance of a benign fluid collection. There is still no drainable abscess visualized. IMPRESSION: 1. There does seem to be less heterogeneity of the breast tissue than noted on the prior exam. The vascularity of the left breast is not as prominent as on the prior exam either. There is still no drainable abscess visualized. 2. If further evaluation is desired, then a short-term (4-6 week) follow-up ultrasound exam would be recommended. ACR BI-RADS Category 3: Probably benign findings. Result letter will be mailed to the patient. Note: At least 10% of breast cancer is not imaged by mammography. Dictated by: Dictated on workstation # [id number]
== END ==
LOC: RAD 12:30
PROVIDERS: ATTEND Family Medicine
DX: N64.89 Other specified disorders of breast (principal); Z20.828 Contact with and (suspected) exposure to other viral communicable diseases
CPT/HCPCS: 76642